=== PATIENT | female | born 1950 | race Two or more races ===

== ENCOUNTER 2025-01-15 05:05 | Day surgery (SDC) | payer OTHER ==
[2025-01-07 12:35] VITALS: BP 118/65
[~2025-01-15] VITALS: Ht 160 cm; Wt 93.0 kg
[~2025-01-15 05:05] MED LIST: ACID REDUCER20 M1 PO; ALTACE1.25 MG PO; FENOFIBRATE50 MG PO; LEVOTHYROXINE25 MCG PO; NORVASC5 MG PO; TOPROL XL25 M1 PO; VYTORIN 10-201 EACH PO
[2025-01-15] MEDS ORDERED: DIBUCAINE 30 GM TUBE RECTAL SCH (08:00)
[2025-01-15] MEDS ORDERED: LIDOCAINE HCL 1%/EPINEPHRINE 20ML VIAL IJ SCH (08:00)
[2025-01-15] MEDS ORDERED: HEMOSTATIC MATRIX 1 KIT KIT TOP SCH (08:00)
[2025-01-15] MEDS ORDERED: POVIDONE-IODINE 118 ML BOTT TOP SCH (08:00)
[2025-01-15] MEDS ORDERED: BUPIVACAINE HCL/PF 0.25% 30ML VIAL InF SCH (08:00)
[2025-01-15] MEDS ORDERED: METRONIDAZOLE/SODIUM CHLORIDE 500 MG/100 ML PIGGYBACK IV SCH (08:00)
[2025-01-15] MEDS ORDERED: CEFTRIAXONE SODIUM 2,000 MG VIAL IV SCH (08:00)
[2025-01-15] MEDS ORDERED: TAMSULOSIN HCL 0.4 MG CAP PO ONE (08:45)
[2025-01-15] MEDS ORDERED: OXYCODONE HCL5 MG PO (09:08)
[2025-01-15] MEDS ORDERED: KETOROLAC TROMETHAMINE 30 MG VIAL IV ONE (11:00)
== END 2025-01-15 12:55 | disposition home or self-care (01) ==
LOC: CIR.AMB 05:05
PROVIDERS: ATTEND Surgery
DX: K64.2 Third degree hemorrhoids (principal); K64.4 Residual hemorrhoidal skin tags; K62.89 Other specified diseases of anus and rectum; K62.5 Hemorrhage of anus and rectum; I10 Essential (primary) hypertension; E03.8 Other specified hypothyroidism; J44.9 Chronic obstructive pulmonary disease, unspecified